=== PATIENT | male | born 1970 | race Caucasian/White ===

== ENCOUNTER 2018-11-11 10:14 | Outpatient (REF) | payer OTHER, SELFPAY ==
[2018-11-11 13:24] LABS: Cholesterol 201 mg/dL (50-200); Glucose 113 mg/dL (70-100); HDL Cholesterol 60 mg/dL (40-60); LDL CHOLESTEROL 126 mg/dL (<100); Triglyceride 93 mg/dL (30-150)
== END 2018-11-11 10:34 ==
LOC: NCHCN 10:14
PROVIDERS: PCP Internal Medicine; Visit Provider Internal Medicine
DX: Z00.00 Encounter for general adult medical examination without abnormal findings (principal); Z13.220 Encounter for screening for lipoid disorders; Z13.1 Encounter for screening for diabetes mellitus
CPT/HCPCS: 80061; 82947; 83721

== ENCOUNTER 2020-08-30 18:54 | Outpatient (REF) | payer OTHER, SELFPAY ==
[2020-08-30 22:21] LABS: Glucose 98 mg/dL (74-106)
[2020-09-01 10:30] LABS: Hepatitis C Ab w Rflx HCV PCR Negative (Negative)
== END 2020-08-30 19:14 ==
LOC: NCHCN 18:54
PROVIDERS: PCP Internal Medicine; Visit Provider Internal Medicine
DX: Z00.00 Encounter for general adult medical examination without abnormal findings (principal); G47.00 Insomnia, unspecified; L30.9 Dermatitis, unspecified; Z13.1 Encounter for screening for diabetes mellitus; Z11.59 Encounter for screening for other viral diseases
CPT/HCPCS: 82947; 86803

== ENCOUNTER 2022-05-28 18:14 | Outpatient (REF) | payer OTHER, SELFPAY ==
[2022-05-28 20:52] LABS: Anion Gap 5.3 mmol/L (3-11); BUN 23 mg/dL (7-18); CO2 30.7 mmol/L (21.0-32.0); CREATININE 1.3 mg/dL (0.70-1.30); Calcium 9.6 mg/dL (8.5-10.1); Chloride 100 mmol/L (98-107); Estimated GFR 66.51 (mL/min/1.73m2); Glucose 87 mg/dL (74-106); Potassium 4.5 mmol/L (3.5-5.1); Sodium 136 mmol/L (136-145)
== END 2022-05-28 18:15 | disposition home or self-care (01) ==
LOC: NCHCN 18:14
PROVIDERS: PCP Internal Medicine; Visit Provider Internal Medicine
DX: I10 Essential (primary) hypertension (principal); M25.511 Pain in right shoulder
CPT/HCPCS: 80048

== ENCOUNTER 2022-06-04 01:44 | Outpatient (CLI) | payer OTHER, SELFPAY ==
--- NOTE | 2022-06-04 13:10 | DI.RAD_ITS ---
Exam(s) XR SHOULDER RT COMPLETE 2+V EXAM: XR SHOULDER RT COMPLETE 2+V CLINICAL HISTORY: RT SHOULDER PAIN, M25.511. TECHNIQUE: 2D digital imaging was performed of the right shoulder. Five images were obtained. AP, Grashey, Y-view and axillary views were obtained. COMPARISON: Comparison MR examination is 08/28/2011. FINDINGS: BONES: No acute fracture is present. No bony destructive lesion is seen. Incidental note is made of a n os acromiale which is a normal variant. JOINTS: No dislocation present. Mild degenerative changes are seen at the acromioclavicular joint. A t the glenohumeral joint there is joint space narrowing and a large osteophyte arising from the infer ior humeral head. SOFT TISSUE: Soft tissue calcifications are seen adjacent to the head of the humerus consistent with calcific tendinitis. IMPRESSION: Degenerative changes of the right shoulder as described above. DATA REPOSITORY: RADIATION DOSE DELIVERED:
== END 2022-06-04 02:04 ==
PROVIDERS: PCP Internal Medicine; Visit Provider Internal Medicine
DX: M19.011 Primary osteoarthritis, right shoulder (principal)
CPT/HCPCS: 73030

== ENCOUNTER 2025-03-04 14:18 | Outpatient (REF) | payer OTHER, SELFPAY ==
[2025-03-04 16:24] LABS: Abs Immature Grans 0.03 10^3/uL (0.0-0.06); HCT 47.4 % (40.0-50.0); HGB 16.6 g/dL (13.5-17.5); Immature Grans % 0.5 %; MCH 29.3 pg (27.0-33.0); MCHC 35.0 % (32.0-36.0); MCV 84 fL (80-95); MPV 10.9 fL (8.0-11.0); Platelet Count 285 10^3/uL (130-400); RBC 5.66 10^6/uL (4.36-5.78); RDW 12.5 % (11.8-14.1); RDW-SD 38.0 fL; WBC 5.96 10^3/uL (4.4-10.8)
[2025-03-04 16:56] LABS: ALT 48 U/L (16-63); AST 27 U/L (15-37); Albumin 4.3 g/dL (3.4-5.0); Alkaline Phosphatase 59 U/L (46-116); Anion Gap 10.6 mmol/L (3-11); BUN 15 mg/dL (7-18); Bilirubin, Total 0.7 mg/dL (0.2-1.0); CO2 26.4 mmol/L (21.0-32.0); Calcium 9.2 mg/dL (8.5-10.1); Calculated LDL 147 mg/dL (<100); Chloride 102 mmol/L (98-107); Cholesterol 235 mg/dL (<200); Estimated GFR 101.49 (mL/min/1.73m2); Glucose 101 mg/dL (74-106); HDL Cholesterol 69 mg/dL (>or=40); Potassium 4.3 mmol/L (3.5-5.1); Sodium 139 mmol/L (136-145); Total Protein 7.5 g/dL (6.4-8.2); Triglyceride 97 mg/dL (<150)
== END 2025-03-04 14:19 | disposition home or self-care (01) ==
LOC: NCHCN 14:18
PROVIDERS: PCP Internal Medicine; Visit Provider Family Medicine
DX: I10 Essential (primary) hypertension (principal); E78.5 Hyperlipidemia, unspecified
CPT/HCPCS: 80053; 80061; 85025